=== PATIENT | male | born 1995 ===

== ENCOUNTER → 2021-04-26 | Outpatient (CLI) | payer OTHER | END | disposition home or self-care (01) | LOC: RAD 16:21 | PROVIDERS: ATTEND Family Medicine | DX: M72.2 Plantar fascial fibromatosis (principal); M77.32 Calcaneal spur, left foot; M77.31 Calcaneal spur, right foot ==

== ENCOUNTER 2022-07-16 09:29 | Outpatient (CLI) | payer OTHER | END 2022-07-16 10:00 | disposition home or self-care (01) | LOC: RAD 09:29 | PROVIDERS: ATTEND Family Medicine | DX: Z98.890 Other specified postprocedural states (principal) ==

== ENCOUNTER 2022-08-14 13:45 | Outpatient (CLI) | payer OTHER | END 2022-08-14 13:48 | disposition home or self-care (01) | LOC: RAD 13:45 | PROVIDERS: ATTEND Physical Medicine & Rehabilitation | DX: S82.61XD Displaced fracture of lateral malleolus of right fibula, subsequent encounter for closed fracture with routine healing (principal) ==